=== PATIENT | female | born 1985 | race African-American/Black ===

== ENCOUNTER 2024-01-01 23:41 | Emergency (ER) | payer OTHER ==
[~2024-01-01] VITALS: Ht 162.6 cm; Wt 72.6 kg
[2024-01-02 00:47] VITALS: TEMP 98.1
[2024-01-02] MEDS ORDERED: ACETAMINOPHEN ES 500 MG TABLET ONE (02:08)
[2024-01-02] MEDS: ACETAMINOPHEN ES 500 MG TABLET PO ONE (02:14)
[2024-01-02] MEDS ORDERED: AMOX-430 PO (02:21)
[2024-01-02] MEDS ORDERED: OXYM15MI4 NS (02:21)
[2024-01-02] MEDS ORDERED: AMOX/CLAVULANATE 875 MG TABLET ONE (02:38)
[2024-01-02] MEDS: AMOX/CLAVULANATE 875 MG TABLET PO ONE (02:46)
[2024-01-02 02:50] VITALS: BP 110/78; O2SAT 98
== END 2024-01-02 02:51 | disposition home or self-care (01) ==
LOC: ER 23:47
DX: S02.2XXA Fracture of nasal bones, initial encounter for closed fracture (principal); J45.909 Unspecified asthma, uncomplicated; W01.0XXA Fall on same level from slipping, tripping and stumbling without subsequent striking against object, initial encounter; Y93.89 Activity, other specified; Y92.89 Other specified places as the place of occurrence of the external cause; Y99.8 Other external cause status
CPT/HCPCS: 70450-TC; 70486-TC